=== PATIENT | female | born 2000 | race Caucasian/White ===

== ENCOUNTER 2019-08-19 02:01 | Emergency (ER) | payer OTHER ==
[~2019-08-19] VITALS: Ht 165.1 cm; Wt 65.8 kg
[2019-08-19 02:36] VITALS: BP_SYST 113
--- NOTE | 2019-08-19 02:43 | NUR ---
Patient to ER bed 4 to gown for evaluation. Side rails up.
--- NOTE | 2019-08-19 02:50 | NUR ---
ER at bedside examining patient.
--- NOTE | 2019-08-19 02:53 | NUR ---
Pt brought in by mother. Pt awake, alert, oriented x4. Pt states that she has had cough/congestion, chills and general body aches. Pt states that she now has new onset of chest wall pain upon inspiration. Pt denotes that pain is in diaphram and chest muscles. Pt denies taking medication at this time. Pt denies cardiac chest pain, denies fever and chills at this time. Pt denies nausea, vomiting, diarrhea, shortness of breath. pt denies any other medical complaint at this time. VSS
[2019-08-19] MEDS ORDERED: IBUPROFEN 800 MG TABLET PO ONE (03:15)
--- NOTE | 2019-08-19 03:15 | NUR ---
Pt resting in ED bed comfortably. No distress.
[2019-08-19] MEDS ORDERED: MORPHINE 2 MG/ML INJ. SYRINGE IM ONE (04:30)
[2019-08-19 04:45] VITALS: BP_SYST 113
--- NOTE | 2019-08-19 04:45 | NUR ---
Patient given written and verbal discharge instructions and verbalizes understanding. ER MD discussed with patient the results and treatment provided. Patient in stable condition. ID arm band removed. Rx of Naprosyn and Tramadol given. Patient educated on pain management and to follow up with PMD. Pain Scale 0/10 Opportunity for questions provided and answered. Medication side effect fact sheet provided.
== END 2019-08-19 04:45 | disposition home or self-care (01) ==
LOC: SED 02:01
DX: R07.89 Other chest pain (principal)
CPT/HCPCS: 81002; 81025; 96372; 99283; J2270